=== PATIENT | female | born 1955 | race Caucasian/White ===

== ENCOUNTER → 2018-04-01 | Outpatient (CLI) | payer OTHER | LOC: BMCIMAGING 15:59 | PROVIDERS: ATTEND Podiatrist Foot & Ankle Surgery | DX: M20.11 Hallux valgus (acquired), right foot (principal); M20.12 Hallux valgus (acquired), left foot; M19.071 Primary osteoarthritis, right ankle and foot; M19.072 Primary osteoarthritis, left ankle and foot; M77.31 Calcaneal spur, right foot; M77.32 Calcaneal spur, left foot ==

== ENCOUNTER 2018-04-11 08:41 | Day surgery (SDC) | payer OTHER ==
[2018-04-11] MEDS ORDERED: LR 1,000 ML IV ONE (08:50)
[2018-04-11] MEDS ORDERED: BUPIVACAINE 0.5% 30 ML SDV ONE ×2 (09:13→10:09)
[2018-04-11] MEDS ORDERED: LIDOCAINE 2% 5 ML SDV ONE ×2 (09:14→10:09)
[2018-04-11] MEDS ORDERED: ceFAZolin 1 GM/5 ML SYR ONE ×2 (09:15→10:10)
[2018-04-11] MEDS ORDERED: ceFAZolin 2 GM/DEXTROSE 100 ML IV ONE ×2 (09:45→10:00)
--- NOTE | 2018-04-11 09:46 | PDANEPAE ---
ANE History of Present Illness R bunionectomy and hammertoe repair ANE Past Medical History - Cardiovascular History Hx Hypertension: No Hx Arrhythmias: No Hx Chest Pain: No Hx Coronary Artery / Peripheral Vascular Disease: No Hx CHF / Valvular Disease: No Hx Palpitations: No - Pulmonary History Hx COPD: No Hx Asthma/Reactive Airway Disease: No Hx Recent Upper Respiratory Infection: No Hx Oxygen in Use at Home: No Hx Sleep Apnea: No Sleep Apnea Screening Result - Last Documented: Negative - Neurologic History Hx Cerebrovascular Accident: No Hx Seizures: No Hx Dementia: No - Endocrine History Hx Diabetes: No Obesity: moderate - Renal History Hx Renal Disorders: No - Liver History Hx Hepatic Disorders: No - Neurological & Psychiatric Hx Hx Neurological and Psychiatric Disorders: No - Cancer History Hx Cancer: Yes Cancer History Comment: melanoma - Congenital Disorder History Hx Congenital Disorders: No - GI History GERD: no Hx Gastrointestinal Disorders: No - Other Health History Other Health History: none - Chronic Pain History Chronic Pain: Yes (R shoulder) - Surgical History Prior Surgeries: 2 rotator cuff sx on R 2017 ANE Review of Systems Review of Systems: - Exercise capacity METS (RN): 4 METS ANE Patient History - Allergies Allergies/Adverse Reactions: enviromental Allergy (Uncoded 04/10/18 10:21) Other-Enter Comments - Home Medications Home Medications: Alloclear 04/10/18 [Last Taken 04/11/18] - NPO status NPO Since - Liquids (Date): 04/10/18 NPO Since - Liquids (Time): 20:30 NPO Since - Solids (Date): 04/10/18 NPO Since - Solids (Time): 20:30 - Anes Hx Anes Hx: post operative nausea - Smoking Hx Smoking Status: Never smoked Marijuana use: No - Alcohol Use Alcohol Use: Rarely - Family Anes Hx Family Anes Hx: none Family Hx Anesthesia Complications: none ANE Labs/Vital Signs - Vital Signs Blood Pressure: 129/82 Heart Rate: 78 Respiratory Rate: 16 O2 Sat (%): 93 Height: 166.37 cm Weight: 102.058 kg ANE Physical Exam - Airway Neck exam: FROM Mallampati Score: Class 1 Mouth exam: normal dental/mouth exam - Pulmonary Pulmonary: clear to auscultation - Cardiovascular Cardiovascular: regular rate and rhythym - ASA Status ASA Status: II ANE Anesthesia Plan Anesthesia Plan: GA with mask
[2018-04-11] MEDS ORDERED: MIDAZOLAM 2 MG/2 ML VIAL IVP ONE (09:48)
[2018-04-11] MEDS ORDERED: ceFAZolin 2 GM/SWFI 2 GM/20 ML SYR IVP ONE (09:53)
[2018-04-11] MEDS ORDERED: fentaNYL 100 MCG/2 ML INJ ONE (09:54)
[2018-04-11] MEDS ORDERED: PROPOFOL/EMULSION 500 MG/50 ML BOTTLE IV ONE ×2 (09:54→11:02)
--- NOTE | 2018-04-11 09:56 | PDHPUP ---
History & Physical Update H&P update statement: This history and physical update is based on an assessment of the patient which was completed after admission or registration (within 24 hours), but prior to the surgery/procedure. H&P update: H&P reviewed & patient examined, no change in patient's condition since H&P completed
[2018-04-11] MEDS ORDERED: ONDANSETRON 4 MG/2 ML VIAL ONE (10:40)
[2018-04-11] MEDS ORDERED: DEXAMETHASONE 4 MG/ML VIAL ONE (10:43)
[2018-04-11] MEDS ORDERED: HYDROCODONE/APAP 5/325 TAB PO PRN (11:47)
[2018-04-11] MEDS ORDERED: fentaNYL 100 MCG/2 ML INJ IVP PRN (11:47)
[2018-04-11] MEDS ORDERED: NALOXONE HCL 0.4 MG/ML INJ IVP PRN (11:47)
[2018-04-11] MEDS ORDERED: ACETAMINOPHEN 500 MG TAB PO PRN (11:47)
[2018-04-11] MEDS ORDERED: ONDANSETRON 4 MG/2 ML VIAL IVP PRN ×2 (11:47→12:31)
[2018-04-11] MEDS ORDERED: oxyCODONE IR 5 MG TAB PO PRN (11:47)
--- NOTE | 2018-04-11 12:54 | POSTOPPROG ---
Post Op Note Date of Operation: 04/11/18 Surgeon: Miryam Mendez Novelty Dipper: None Anesthesiologist: Dr. Alberts Anesthesia: IV Sedation Pre-op Diagnosis: Right foot hallux valgus, 2nd toe hammertoe, metatarsalgia Post-op Diagnosis: Right foot hallux valgus, 2nd toe hammertoe, metatarsalgia Indication: Painful right foot deformities Procedure: Right bunionectomy, PIPJ fusion, met osteotomy, plantar plate repair Findings: 2nd MPJ plantar plate tear Inf/Abcess present in the surg proc area at time of surgery?: No Depth: Deep Incisional (Fascial) EBL: Minimal Complications: None
--- NOTE | 2018-04-11 13:01 | POSTANESTH ---
Post Anesthetic Evaluation Cardiovascular Status: Normal, Stable Respiratory Status: Normal, Stable Level of Consciousness/Mental Status: Can Participate in Eval Pain Control: Adequate, Prn Tx Ordered Nausea/Vomiting Control: Adequate, Prn Tx Ordered Complications Possibly Related to Anesthesia: None Noted
[2018-04-11] MEDS ORDERED: HYDROCODONE/APAP 5/325 TAB ONE (13:40)
--- NOTE | 2018-04-11 13:42 | GOP ---
[f rep st] OPERATIVE REPORT DATE OF OPERATION: 04/11/2018 SURGEON: Miryam Mendez DPM ANESTHESIA: Local with monitored anesthesia care. ANESTHESIOLOGIST: . PREOPERATIVE DIAGNOSIS: 1. Right foot hallux abductovalgus deformity. 2. Right 2nd metatarsalgia. 3. Right 2nd hammertoe. POSTOPERATIVE DIAGNOSIS: 1. Right foot hallux abductovalgus deformity. 2. Right 2nd metatarsalgia. 3. Right 2nd hammertoe. 4. Right 2nd metatarsophalangeal joint plantar plate tear. PROCEDURE PERFORMED: 1. Right foot modified Garza bunionectomy. 2. Right foot chevron bunionectomy. 3. Right 2nd proximal interphalangeal joint fusion. 4. Right 2nd metatarsal Cami osteotomy. 5. Right 2nd metatarsophalangeal joint plantar plate repair. FINDINGS: ESTIMATED BLOOD LOSS: Minimal. DESCRIPTION OF PROCEDURE: Under mild sedation, the patient was brought to the operating room, placed on the operating table in supine position. Following IV sedation, local anesthesia was obtained abo ut the right foot using 15 cc of 0.5% Marcaine plain and 5 cc of 2% lidocaine plain. The foot was th en scrubbed, prepped, and draped in the usual aseptic manner. A sterile pneumatic ankle tourniquet w as placed about the right ankle. The foot was exsanguinated and tourniquet inflated to 225 mmHg. At tention was then directed to the 1st metatarsophalangeal joint where an incision was made medial and parallel to the tendon of the extensor hallucis longus. The incision was deepened through subcutaneo us tissue with care taken to identify and retract all vital neurovascular structures. All bleeders w ere cauterized as necessary. An inverted L type capsulotomy was then performed over the 1st metatars ophalangeal joint. The periosteum and capsule were reflected medially and laterally to expose the 1s t metatarsal head at the operative site. The medial eminence was resected utilizing an oscillating b one saw. A lateral release was then performed through the same incision, releasing the adductor feliz ucis from it attachment at the base of the proximal phalanx. The lateral contracture of the hallux w as noted to be reduced. At this point, a 0.045 inch K-wire was then inserted from medial to lateral across the 1st metatarsal head to serve as an axis guide. A chevron osteotomy was then performed thr ough the 1st metatarsal metaphyseal region with the arm pointed dorsal proximal and plantar proximal. The dorsal arm was made longer to accommodate internal fixation. Once the osteotomy was complete, the K-wire was removed. The 1st metatarsal head was then shifted laterally and impacted upon the rem aining 1st metatarsal shaft. It was temporarily fixated with 2, 0.045 inch K-wires. Following stand anders AO principles and techniques, 2 Synthes 2.7 cortical screws were placed across the osteotomy site with excellent compression noted. The remaining medial bone shelf was removed with the oscillating bone saw. All rough edges were smoothed with a bur. The wound was irrigated with copious sterile sa line Ancef irrigation. The redundant medial capsule was resected as necessary. 3-0 Vicryl was used to repair the periosteum and capsule. The incision was repaired with 4-0 Monocryl and 4-0 Prolene in a running subcuticular suture technique. 1 cc dexamethasone phosphate was infiltrated about the 1st metatarsophalangeal joint. Attention was then directed to the 2nd toe and the 2nd metatarsal where an incision was made between the 2nd and 3rd metatarsals dorsally and extended over the dorsal aspect of the 2nd toe proximal inte rphalangeal joint. The callus over the joint was removed. The incision was deepened through subcuta neous tissue with care taken to identify and retract all vital neurovascular structures. All bleeder s were cauterized as necessary. At this point, a transverse extensor tenotomy was then performed ove r the proximal interphalangeal joint. The tendon was then reflected proximally and distally. The os cillating bone saw was used to resect the head of the proximal phalanx and base of the middle phalanx . Attention was then directed proximally to the 2nd metatarsophalangeal joint where the periosteum and capsule were reflected medially and laterally. A McGlamry elevator was used to free the adhesions ab out the joint. At this point, a Cami osteotomy was then performed through the head of the 2nd metata rsal. The osteotomy was made from dorsal distal to plantar proximal. The head of the 2nd metatarsal was brought as far proximally as possible and temporarily fixated with the guidewire for the distrac tor. A 2nd pin was then placed from dorsal to plantar across the base of the proximal phalanx and th e distractor used to evaluate the plantar plate. The plantar plate was found to be frayed and torn. It was decided to repair the plantar plate at this time. The remaining fibers were released with a 15 blade. The base of the proximal phalanx was rasped to help with adherence postoperatively. At th is point, the scorpion instrumentation was used to repair the 2nd metatarsophalangeal joint plantar p late. The suture was placed through the plantar plate without any complications. The guidewire was then used through the base of the proximal phalanx and the suture passer used to bring the suture fro m the plantar plate up through the base of the proximal phalanx. The suture was left in place until the osteotomy was fixated. At this point, the guidewires were removed and the 2nd metatarsal osteoto my temporarily fixated and permanently fixated with 2 Arthrex snap-off screws. Good compression was noted with the fixation. The was evaluated via fluoroscopy prior to permanent fixation. Attention was then directed back to the proximal interphalangeal joint. A guidewire was then used in both the proximal and middle phalanx. It was then drilled according to the technique. The Arthrex RetroFusion screw was then placed across the fusion site with good compression. This was all evaluat ed under fluoroscopy throughout the procedure. The 2nd toe was placed into a nice straight position. At this point, attention was then directed to the plantar plate which the suture over the dorsal as pect of the proximal phalanx was tightened down to repair the plantar plate to the base of the proxim al phalanx. This held the toe in a straight position. The wound was irrigated with copious sterile saline Ancef irrigation. The periosteum and capsule as well as the extensor tendon were repaired wit h 3-0 Vicryl. The subcuticular layer was repaired with 4-0 Monocryl and the skin with 4-0 Prolene in a horizontal and simple suture technique. Mastisol and Steri-Strips were applied to the 1st metatar sophalangeal joint incision. Both incisions were dressed with Xeroform, 4 x 4 gauze, Lucinda, and Goyo wrap. The tourniquet was deflated at 108 minutes. A prompt hyperemic response was noted to all digi ts of the right foot. The patient was then transferred to the recovery room with vital signs stable and vascular status int act. Following a period of postoperative monitoring, the patient will be discharged home, advised to ice and elevate her foot. She is advised to keep the dressing clean, dry, and intact. She will fol low up with me in next week for wound check and dressing change. INJECTABLES: Preop injection of 15 cc of 0.5% Marcaine plain and 5 cc of 2% lidocaine plain. Intrao p injection of 5 cc of 0.5% Marcaine plain. MATERIALS: Synthes 2.7 cortical screws, 16 mm and 18 mm in the 1st metatarsal. 0-FiberWire in the 2 nd metatarsal plantar plate repair. A 2nd metatarsal osteotomy, 2 mm x 11 mm snap-off screws x2. Re troFusion Arthrex hammertoe implant across the proximal interphalangeal joint of the 2nd toe. HEMOSTASIS: Pneumatic ankle tourniquet at 225 mmHg for 108 minutes. /[id number]/MODL
[2018-04-11 14:08] VITALS: BP 113/71
== END 2018-04-11 14:05 | disposition home or self-care (01) ==
LOC: FSGY 08:41
PROVIDERS: ATTEND Podiatrist Foot & Ankle Surgery
PROC: 0QSN0ZZ Reposition Right Metatarsal, Open Approach (ICD-10-PCS; principal; 2018-04-11 10:00)
PROC: 0SGP04Z Fusion of Right Toe Phalangeal Joint with Internal Fixation Device, Open Approach (ICD-10-PCS; principal; 2018-04-11 10:00)
PROC: 0QBN0ZZ Excision of Right Metatarsal, Open Approach (ICD-10-PCS; principal; 2018-04-11 10:00)
PROC: 0QQQ0ZZ Repair Right Toe Phalanx, Open Approach (ICD-10-PCS; principal; 2018-04-11 10:00)
DX: M20.11 Hallux valgus (acquired), right foot (principal); M20.41 Other hammer toe(s) (acquired), right foot; M77.41 Metatarsalgia, right foot; S93.524A Sprain of metatarsophalangeal joint of right lesser toe(s), initial encounter
CPT/HCPCS: C1713; J0690; J1100; J2250; J2405; J2704; J3010